=== PATIENT | male | born 1995 | race American Indian/Alaskan Native ===

== ENCOUNTER 2016-08-30 19:55 | Emergency (ER) | payer SELFPAY ==
[2016-08-30] MEDS ORDERED: NORCO 5/325 PO ONE (22:24)
--- NOTE | 2016-08-30 22:38 | Emergency Department Report ---
ED ENT HPI - General Chief complaint: Earache Stated complaint: HEARING LOSS/HEAD/NECK/EAR PAIN Time Seen by Provider: 08/30/16 22:22 Source: patient Mode of arrival: Ambulatory Limitations: No Limitations - History of Present Illness Initial comments: 21-year-old -[place] male comes in for complaint of hearing loss in the left ear, head and neck pain 1 week as well as a toothache. Patient denies any nausea no vomiting no fever no chills. He has no past medical history currently takes no medication and has no known drug allergies. He is employed he has taken aspirin without much relief. MD complaint: tooth pain, ear pain - Related Data Previous Rx's Medication Instructions Recorded Last Taken Type Acetaminophen/Codeine [Tylenol 1 tab PO Q6H PRN #12 tab 08/30/16 Unknown Rx /Codeine # 3 tab] Clindamycin [Clindamycin CAP] 300 mg PO Q8H #30 cap 08/30/16 Unknown Rx Ibuprofen [Motrin 600 MG tab] 600 mg PO Q8H PRN #30 tablet 08/30/16 Unknown Rx Allergies Allergy/AdvReac Type Severity Reaction Status Date / Time No Known Allergies Allergy Verified 08/30/16 20:38 ED Dental HPI - General Chief complaint: Earache Stated complaint: HEARING LOSS/HEAD/NECK/EAR PAIN Time Seen by Provider: 08/30/16 22:22 Source: patient Mode of arrival: Ambulatory Limitations: No Limitations - Related Data Previous Rx's Medication Instructions Recorded Last Taken Type Acetaminophen/Codeine [Tylenol 1 tab PO Q6H PRN #12 tab 08/30/16 Unknown Rx /Codeine # 3 tab] Clindamycin [Clindamycin CAP] 300 mg PO Q8H #30 cap 08/30/16 Unknown Rx Ibuprofen [Motrin 600 MG tab] 600 mg PO Q8H PRN #30 tablet 08/30/16 Unknown Rx Allergies Allergy/AdvReac Type Severity Reaction Status Date / Time No Known Allergies Allergy Verified 08/30/16 20:38 ED Review of Systems ROS: Stated complaint: HEARING LOSS/HEAD/NECK/EAR PAIN Other details as noted in HPI Constitutional: denies: chills, fever Eyes: denies: eye pain, eye discharge, vision change ENT: dental pain, other (left ear hearing loss) Respiratory: denies: cough, shortness of breath, wheezing Cardiovascular: denies: chest pain, palpitations Endocrine: no symptoms reported Gastrointestinal: denies: abdominal pain, nausea, diarrhea Genitourinary: denies: urgency, dysuria Musculoskeletal: denies: back pain, joint swelling, arthralgia Neurological: denies: headache, weakness, paresthesias Psychiatric: denies: anxiety, depression ED Past Medical Hx - Past Medical History Previous Medical History?: No - Surgical History Past Surgical History?: No - Social History Smoking Status: Never Smoker Substance Use Type: None - Medications Home Medications: Home Medications Medication Instructions Recorded Confirmed Last Taken Type Acetaminophen/Codeine [Tylenol 1 tab PO Q6H PRN #12 tab 08/30/16 Unknown Rx /Codeine # 3 tab] Clindamycin [Clindamycin CAP] 300 mg PO Q8H #30 cap 08/30/16 Unknown Rx Ibuprofen [Motrin 600 MG tab] 600 mg PO Q8H PRN #30 tablet 08/30/16 Unknown Rx ED Physical Exam - General Limitations: No Limitations General appearance: alert, in no apparent distress - ENT ENT exam: Present: mucous membranes moist, TM's normal bilaterally - Expanded ENT Exam Expanded Teeth exam: Present: fractured tooth # (30) Throat exam: Positive: normal inspection. Negative: tonsillar erythema, tonsillomegaly - Neck Neck exam: Present: normal inspection, tenderness (left side anterior) - Respiratory Respiratory exam: Present: normal lung sounds bilaterally - Cardiovascular Cardiovascular Exam: Present: regular rate ED Course Vital Signs 08/30/16 08/30/16 20:23 20:38 Temperature 98 F 98.0 F Pulse Rate 104 H 104 H Respiratory 20 20 Rate Blood Pressure 138/74 Blood Pressure 138/74 [Right] O2 Sat by Pulse 99 99 Oximetry ED Medical Decision Making - Medical Decision Making Patient has been evaluated by this provider fast track. Discussed with patient that we will give him pain medication of [place]. Did discuss with patient and will placement clindamycin 300 mg 1 tablet by mouth 3 times a day for 10 days. Also discussed with patient that we will refer him to review notes and throat doctor for evaluation of hearing loss in the left ear. Discussed with him will place him on some Tylenol 3 that he should not operate heavy machinery while taking Tylenol No. 3. As well as I'll give him ibuprofen 800 mg 1 tablet by mouth 3 times a day when necessary. Critical care attestation.: If time is entered above; I have spent that time in minutes in the direct care of this critically ill patient, excluding procedure time. ED Disposition Clinical Impression: Tooth abscess, Hearing difficulty of left ear Disposition: DISCHARGED TO HOME OR SELFCARE Is pt being admited?: No Does the pt Need Aspirin: No Condition: Stable Instructions: Toothache (ED), Dental Abscess (ED) Additional Instructions: Antibiotics as prescribed. 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 I have also attached a list of dental providers that she may follow up with. Prescriptions: Acetaminophen/Codeine [Tylenol /Codeine # 3 tab] 1 tab PO Q6H PRN #12 tab PRN Reason: Pain Clindamycin [Clindamycin CAP] 300 mg PO Q8H #30 cap Ibuprofen [Motrin 600 MG tab] 600 mg PO Q8H PRN #30 tablet PRN Reason: Pain Referrals: PRIMARY CARE, [Primary Care Provider] - 3-5 Days YONI ALBERT MD [Staff Physician] - 3-5 Days Forms: Work/School Release Form(ED), Accompanied Note
[2016-08-30 23:32] VITALS: BP 122/68
== END 2016-08-30 23:33 | disposition home or self-care (01) ==
LOC: ED 19:55
DX: K04.7 Periapical abscess without sinus (principal); H91.92 Unspecified hearing loss, left ear
CPT/HCPCS: 99282

== ENCOUNTER 2016-11-15 18:54 | Emergency (ER) | payer OTHER ==
[2016-11-15 20:16] VITALS: BP 135/79
--- NOTE | 2016-11-15 20:21 | XRay Report ---
FINAL REPORT PROCEDURE: XR HAND 2V RT TECHNIQUE: RIGHT hand radiographs, AP, lateral, and oblique views. CPT 10811-JB HISTORY: Rt hand 2nd digit, pain, send for report COMPARISON: No prior studies are available for comparison. FINDINGS: Fracture (s) and/or Dislocation(s): An acute oblique fracture is noted involving the distal diaphysis of 2nd proximal phalanx extending into the distal metaphysis. The fracture is involving the articular surface.. Alignment: There is minimal displacement of the fracture fragments by about 2 millimeters. Joint space(s): Normal . Soft tissues: Normal . Bone mineralization: Normal . Foreign bodies: None . IMPRESSION: Acute fracture 2nd proximal phalanx..
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
[2016-11-15] MEDS ORDERED: TORADOL IM ONE (21:45)
== END 2016-11-15 21:40 | disposition left against medical advice (07) ==
LOC: ED 18:54
DX: S62.640A Nondisplaced fracture of proximal phalanx of right index finger, initial encounter for closed fracture (principal); X58.XXXA Exposure to other specified factors, initial encounter; Y93.89 Activity, other specified; Y99.9 Unspecified external cause status; Y92.89 Other specified places as the place of occurrence of the external cause